=== PATIENT | female | born 2000 | race Caucasian/White ===

== ENCOUNTER → 2025-03-03 13:09 | Outpatient (REF) | payer OTHER, SELFPAY | LOC: PAVMRI 13:09 | PROVIDERS: ATTENDING PHYSICIAN Physician Assistant; FAMILY PHYSICIAN Nurse Practitioner Pediatrics | DX: S83.232A Complex tear of medial meniscus, current injury, left knee, initial encounter (principal) | CPT/HCPCS: 73721 ==